=== PATIENT | female | born 1990 | race Caucasian/White ===

== ENCOUNTER 2018-11-10 12:01 | Emergency (ER) | payer SELFPAY ==
[~2018-11-10] VITALS: Ht 167.6 cm; Wt 67.2 kg
--- NOTE | 2018-11-10 12:01 | NUR ---
PATIENT BIBA TO BED 3 AT THIS TIME.
[2018-11-10 12:05] VITALS: BP 135/87
--- NOTE | 2018-11-10 12:05 | NUR ---
PATIENT LEFT WITHOUT BEING SEEN BY DR. CHOI. NO FURTHER CARE PROVIDED FOR PATIENT.
== END 2018-11-10 12:05 | disposition left against medical advice (07) ==
LOC: MED 12:01
DX: F41.9 Anxiety disorder, unspecified (principal); Z53.21 Procedure and treatment not carried out due to patient leaving prior to being seen by health care provider

== ENCOUNTER 2019-12-19 21:28 | Emergency (ER) | payer MEDICAID ==
[~2019-12-19] VITALS: Ht 180.3 cm; Wt 88.5 kg
[2019-12-19 21:52] VITALS: BP 136/83
--- NOTE | 2019-12-19 21:58 | NUR ---
To ED bed 06
--- NOTE | 2019-12-19 22:13 | NUR ---
Pt BIB self C/O bilateral foot pain that increases while walking x2 days. + BLE edema, skin is intact, - N/V/D, - fever. PT states she just found out she is .
[2019-12-19 23:04] LABS: BASOPHILS % (AUTO) 0.4 % (0.0-2.0); EOSINOPHILS % (AUTO) 0.5 % (0.0-4.0); HEMATOCRIT 35.7 % (36-48); LYMPHOCYTES # (AUTO) 1.6 K/uL (2.5-16.5); LYMPHOCYTES % (AUTO) 27.4 % (20.5-51.1); MEAN CORPUSCULAR HEMOGLOBIN 34 pg (27-31); MEAN CORPUSCULAR HGB CONC 34 g/dL (33-37); MEAN CORPUSCULAR VOLUME 100.3 fL (80-94); MONOCYTES # (AUTO) 0.4 K/uL (0.8-1.0); MONOCYTES % (AUTO) 6.5 % (1.7-9.3); NEUTROPHILS # (AUTO) 3.8 K/uL (1.8-7.7); NEUTROPHILS % (AUTO) 65.2 % (42.2-75.2); PLATELET COUNT (AUTO) 223 K/uL (140-450); RED BLOOD CELL COUNT(AUTO) 3.55 MIL/uL (4.20-5.40); RED CELL DISTRIBUTION WIDTH 13.3 % (11.6-13.7); WHITE BLOOD COUNT (AUTO) 5.9 K/uL (4.8-10.8)
[2019-12-19 23:19] LABS: ALBUMIN 2.6 g/dL (3.4-5.0); ANION GAP 8.8 (8-16); CARBON DIOXIDE 25.8 mmol/L (21-32); CREATININE 0.6 mg/dL (0.6-1.3); POTASSIUM 3.6 mmol/L (3.5-5.1); TOTAL BILIRUBIN 0.3 mg/dL (0.0-1.0)
--- NOTE | 2019-12-20 00:45 | NUR ---
Dr. Hernandez examining patient.
--- NOTE | 2019-12-20 01:45 | NUR ---
Dr Hernandez at bedside
[2019-12-20 02:21] VITALS: BP 114/76
== END 2019-12-20 02:22 | disposition home or self-care (01) ==
LOC: MED 21:28
DX: O12.02 Gestational edema, second trimester (principal); O23.42 Unspecified infection of urinary tract in pregnancy, second trimester; Z3A.20 20 weeks gestation of pregnancy
CPT/HCPCS: 36415; 76805; 80053; 81002; 81025; 84702; 85025; 93970; 99285; Q0092

== ENCOUNTER 2020-04-30 21:30 | Inpatient (IN) | payer MEDICAID, SELFPAY ==
[~2020-04-30] VITALS: Ht 180.3 cm; Wt 104.3 kg
[2020-04-30] MEDS ORDERED: OXYTOCIN 20 UNITS in LACTATED RINGERS 1,000 ML IV SCH (22:00)
[2020-04-30] MEDS ORDERED: LACTATED RINGERS 1,000 ML IV SCH (22:00)
[2020-04-30] MEDS ORDERED: METHYLERGONOVINE 0.2 MG/ML AMP IM PRN (22:00)
[2020-04-30] MEDS ORDERED: MORPHINE SULFATE 5 MG/ML VIAL IVP PRN (22:00)
[2020-04-30] MEDS ORDERED: AMPICILLIN 2,000 MG in NACL 0.9% MINI-BAG PLUS 100 ML IV SCH (22:00)
[2020-04-30] MEDS ORDERED: ONDANSETRON 4 MG/2 ML VIAL IVP PRN (22:00)
[2020-04-30] MEDS ORDERED: ONDANSETRON 4 MG/2 ML VIAL ONE (22:25)
[2020-04-30] MEDS ORDERED: MORPHINE SULFATE 10 MG/ML VIAL ONE (22:25)
[2020-04-30 22:31] LABS: BASOPHILS % (AUTO) 0.4 % (0.0-2.0); EOSINOPHILS % (AUTO) 0.3 % (0.0-4.0); HEMOGLOBIN 11.9 g/dL (12.0-16.0); LYMPHOCYTES # (AUTO) 1.3 K/uL (2.5-16.5); LYMPHOCYTES % (AUTO) 14.8 % (20.5-51.1); MEAN CORPUSCULAR HEMOGLOBIN 31 pg (27-31); MEAN CORPUSCULAR HGB CONC 33 g/dL (33-37); MEAN CORPUSCULAR VOLUME 92.8 fL (80-94); MONOCYTES # (AUTO) 0.6 K/uL (0.8-1.0); MONOCYTES % (AUTO) 6.9 % (1.7-9.3); NEUTROPHILS # (AUTO) 6.6 K/uL (1.8-7.7); NEUTROPHILS % (AUTO) 77.6 % (42.2-75.2); PLATELET COUNT (AUTO) 245 K/uL (140-450); RED BLOOD CELL COUNT(AUTO) 3.88 MIL/uL (4.20-5.40); RED CELL DISTRIBUTION WIDTH 13.6 % (11.6-13.7); WHITE BLOOD COUNT (AUTO) 8.6 K/uL (4.8-10.8)
[2020-04-30 22:51] LABS: MAGNESIUM 1.5 mg/dL (1.8-2.4)
[2020-04-30 22:57] LABS: ALBUMIN 2.4 g/dL (3.4-5.0); ANION GAP 13.8 (8-16); CARBON DIOXIDE 23.3 mmol/L (21-32); CREATININE 0.8 mg/dL (0.6-1.3); POTASSIUM 4.1 mmol/L (3.5-5.1); TOTAL BILIRUBIN 0.3 mg/dL (0.0-1.0)
[2020-04-30 23:20] LABS: APPEARANCE,URINE CLOUDY (CLEAR); BILIRUBIN,URINE NEGATIVE (NEGATIVE); BLOOD, URINE TRACE-I (NEGATIVE); COLOR,URINE YELLOW (YELLOW); LEUKOCYTE ESTERASE ,URINE NEGATIVE (NEGATIVE); NITRITE, URINE NEGATIVE (NEGATIVE); UGLUCOSE NEGATIVE (NEGATIVE)
[2020-04-30] MEDS ORDERED: PANTOPRAZOLE 40 MG TABEC PO SCH (23:30)
[2020-04-30 23:31] LABS: RBC,URINE 0-5 /HPF (0-5); WBC,URINE 0-5 /HPF (0-5)
[2020-04-30 23:32] LABS: URINE AMORPHOUS URATE 1+ /HPF (None Seen)
[2020-04-30] MEDS ORDERED: ROPIVACAINE 0.2%/NS PREMIX 200 ML EPI ONE (23:32)
[2020-04-30 23:41] LABS: BARBITURATE, URINE NEGATIVE ng/ml (NEG <=200); BENZODIAZEPINE, URINE NEGATIVE ng/mL (NEG <=200); CANNABINOID, URINE NEGATIVE ng/mL (NEG <=50); COCAINE, URINE NEGATIVE ng/mL (NEG <=300); OPIATE, URINE POSITIVE ng/mL (NEG <=2000); PHENCYCLIDINE SCREEN,URINE NEGATIVE ng/mL (NEG <=25)
[2020-04-30] MEDS ORDERED: OXYTOCIN 20 UNITS/LR PREMIX 1,000 ML IV ONE (23:43)
[2020-04-30] MEDS ORDERED: AMPICILLIN 2,000 MG VIAL ONE (23:46)
[2020-04-30 23:55] LABS: URINE TOTAL PROTEIN 20.7 mg/dL (0-12)
[2020-05-01] MEDS ORDERED: AMPICILLIN 1,000 MG in NACL 0.9% MINI-BAG PLUS 50 ML IV SCH ×2
[2020-05-01 01:28] VITALS: BP 150/100
[2020-05-01] MEDS ORDERED: METHYLERGONOVINE 0.2 MG TAB PO PRN (09:50)
[2020-05-01] MEDS ORDERED: OXYTOCIN 10 UNITS/ML VIAL IM PRN (09:50)
[2020-05-01] MEDS ORDERED: BENZOCAINE/MENTHOL 20%-0.5% 60 GM CAN TP PRN (09:50)
[2020-05-01] MEDS ORDERED: MEASLES, MUMPS, AND RUBELLA 1 VIAL SQVAC PRN (09:50)
[2020-05-01] MEDS ORDERED: METHYLERGONOVINE 0.2 MG/ML AMP IM PRN (09:50)
[2020-05-01] MEDS: IBUPROFEN 800 MG TAB PO PRN ×3 (10:24→22:58)
[2020-05-01] MEDS ORDERED: oxyCODONE/APAP 5/325 MG 1 TAB TAB PO SCH (12:00)
[2020-05-01] MEDS: NIFEdipine 60 MG TABER PO SCH (12:02)
[2020-05-01] MEDS ORDERED: LORazepam 2 MG/ML VIAL IM PRN (23:25)
[2020-05-02 06:13] LABS: HEMATOCRIT 32.5 % (36-48); HEMOGLOBIN 10.8 g/dL (12.0-16.0)
[2020-05-02] MEDS ORDERED: NIFEdipine 60 MG TABER PO SCH (09:00)
[2020-05-02 09:04] LABS: RAPID PLASMA REAGIN NON-REACTIVE (Non Reactiv)
[2020-05-02] MEDS: NIFEdipine 60 MG TABER PO SCH (09:43)
[2020-05-02] MEDS: LORazepam 1 MG TAB PO PRN (09:44)
[2020-05-02] MEDS ORDERED: ONDANSETRON 4 MG ODT SL PRN (19:15)
[2020-05-02] MEDS ORDERED: FLU VACCINE QS2020-21 0.5 ML SYR IMVAC PRN (20:05)
[2020-05-03] MEDS: LORazepam 1 MG TAB PO PRN (07:57)
== END 2020-05-03 08:45 | disposition home or self-care (01) | DRG 560 ==
LOC: OBSVTOIN 21:30 → MLD 21:30 → MFCC 05-01 10:35
PROVIDERS: ADMIT Obstetrics & Gynecology; ATTEND Obstetrics & Gynecology
PROC: 10E0XZZ Delivery of Products of Conception, External Approach (ICD-10-PCS; principal; 2020-05-01)
PROC: 3E0234Z Introduction of Serum, Toxoid and Vaccine into Muscle, Percutaneous Approach (ICD-10-PCS; 2020-05-01)
PROC: 3E0134Z Introduction of Serum, Toxoid and Vaccine into Subcutaneous Tissue, Percutaneous Approach (ICD-10-PCS; 2020-05-01)
PROC: 3E02340 Introduction of Influenza Vaccine into Muscle, Percutaneous Approach (ICD-10-PCS; 2020-05-02)
DX: O99.324 Drug use complicating childbirth (principal); Z37.0 Single live birth; Z3A.39 39 weeks gestation of pregnancy; O70.0 First degree perineal laceration during delivery; Z23 Encounter for immunization; Z20.822 Contact with and (suspected) exposure to COVID-19; F15.93 Other stimulant use, unspecified with withdrawal
CPT/HCPCS: 36415; 80053; 80305; 81001; 82310; 82570; 83735; 84560; 85018; 85025; 85384; 85610; 85730; 86592; 86762; 86886; 86900; 86901; 87086; 87340; 87653-90; 90715; J0290; J2060; J2270; J2405; J2590; J2795; J7120

== ENCOUNTER 2021-06-28 18:12 | Emergency (ER) | payer SELFPAY ==
[~2021-06-28] VITALS: Ht 180.3 cm; Wt 90.7 kg
[2021-06-28 18:15] VITALS: BP 122/88
--- NOTE | 2021-06-28 18:15 | NUR ---
BIBA to bed 12
--- NOTE | 2021-06-28 18:22 | NUR ---
MIRIAM Lewis is evaluating patient at bedside
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
--- NOTE | 2021-06-28 18:30 | NUR ---
PATIENT ELOPED. CHARGE NURSE AND MIRIAM BARKSDALE MADE AWARE.
== END 2021-06-28 18:30 | disposition home or self-care (01) ==
LOC: MED 18:12
DX: F41.9 Anxiety disorder, unspecified (principal)
CPT/HCPCS: 99283

== ENCOUNTER 2021-11-21 10:29 | Emergency (ER) | payer SELFPAY ==
[~2021-11-21] VITALS: Ht 170.2 cm; Wt 78.5 kg
[2021-11-21 10:29] VITALS: BP 145/88
[2021-11-21] MEDS ORDERED: NACL 0.9% 1,000 ML IV ONE (10:30)
[2021-11-21] MEDS ORDERED: ONDANSETRON 4 MG/2 ML VIAL IVP ONE (10:40)
[2021-11-21 11:18] LABS: BASOPHILS % (AUTO) 0.7 % (0.0-2.0); EOSINOPHILS % (AUTO) 0.2 % (0.0-4.0); HEMATOCRIT 45.3 % (36-48); HEMOGLOBIN 15.2 g/dL (12.0-16.0); LYMPHOCYTES # (AUTO) 2.4 K/uL (2.5-16.5); LYMPHOCYTES % (AUTO) 39.8 % (20.5-51.1); MEAN CORPUSCULAR HEMOGLOBIN 31 pg (27-31); MEAN CORPUSCULAR HGB CONC 34 g/dL (33-37); MEAN CORPUSCULAR VOLUME 93.7 fL (80-94); MONOCYTES # (AUTO) 0.5 K/uL (0.8-1.0); MONOCYTES % (AUTO) 8.8 % (1.7-9.3); NEUTROPHILS # (AUTO) 3.1 K/uL (1.8-7.7); NEUTROPHILS % (AUTO) 50.5 % (42.2-75.2); PLATELET COUNT (AUTO) 279 K/uL (140-450); RED BLOOD CELL COUNT(AUTO) 4.83 MIL/uL (4.20-5.40); RED CELL DISTRIBUTION WIDTH 13.6 % (11.6-13.7); WHITE BLOOD COUNT (AUTO) 6.2 K/uL (4.8-10.8)
[2021-11-21 11:30] LABS: ALBUMIN 4.1 g/dL (3.4-5.0); CARBON DIOXIDE 27.2 mmol/L (21-32); CREATININE 1.1 mg/dL (0.6-1.3); POTASSIUM 3.2 mmol/L (3.5-5.1); TOTAL BILIRUBIN 0.8 mg/dL (0.0-1.0)
[2021-11-21 11:52] LABS: ACETAMINOPHEN < 0.5 ug/ml (10-30); SALICYLATE < 2.8 mg/dL (2.8-20.0)
[2021-11-21] MEDS ORDERED: NALO4SPR NS (16:07)
[2021-11-21 16:18] VITALS: BP 129/89
== END 2021-11-21 16:15 | disposition home or self-care (01) ==
LOC: MED 10:29
DX: T40.411A Poisoning by fentanyl or fentanyl analogs, accidental (unintentional), initial encounter (principal); J45.909 Unspecified asthma, uncomplicated; F12.90 Cannabis use, unspecified, uncomplicated; Y92.89 Other specified places as the place of occurrence of the external cause
CPT/HCPCS: 36415; 71045; 80053; 83880; 84484; 84702; 85025; 96374; 99285; G0480; G0482; J2405; J7030

== ENCOUNTER 2022-02-15 15:02 | Emergency (ER) | payer SELFPAY ==
[~2022-02-15 15:02] MED LIST: NALO4SPR NS
--- NOTE | 2022-02-15 15:32 | NUR ---
PATIENT LEFT WITHOUT BEING SEEN BY DR. ARDON. NO FURTHER CARE PROVIDED FOR PATIENT.
--- NOTE | 2022-02-15 15:32 | NUR ---
PT CALLED IN LOBBY. NO ANSWER.
--- NOTE | 2022-02-15 15:55 | NUR ---
[id number]. NO SHOW
== END 2022-02-15 15:32 | disposition left against medical advice (07) ==
LOC: MED 15:02
DX: L02.91 Cutaneous abscess, unspecified (principal); Z53.21 Procedure and treatment not carried out due to patient leaving prior to being seen by health care provider

== ENCOUNTER 2023-07-28 16:07 | Emergency (ER) | payer SELFPAY ==
[~2023-07-28] VITALS: Ht 172.7 cm; Wt 90.7 kg
[2023-07-28 16:19] VITALS: BP 139/91; PULSE 120; RESP 10; TEMP 98.3; O2SAT 99
[2023-07-28 16:27] VITALS: BP 139/91; PULSE 120; RESP 10; TEMP 98.3
[2023-07-28 16:43] VITALS: O2SAT 98
[2023-07-28] MEDS: NACL 0.9% 1,000 ML IV ONE (16:44)
== END 2023-07-28 16:34 | disposition left against medical advice (07) ==
LOC: MED 16:07
DX: F15.90 Other stimulant use, unspecified, uncomplicated (principal); T43.625A Adverse effect of amphetamines, initial encounter; R53.81 Other malaise; R63.1 Polydipsia; J45.909 Unspecified asthma, uncomplicated; Z79.899 Other long term (current) drug therapy; Y92.89 Other specified places as the place of occurrence of the external cause
CPT/HCPCS: 99283